=== PATIENT | female | born 1960 | race Caucasian/White ===

== ENCOUNTER 2021-12-19 13:09 | Outpatient (CLI) | payer SELFPAY ==
--- NOTE | 2021-12-19 13:24 | CT_ITS ---
STUDY: CT MAXILLOFACIAL SINUSES REASON FOR EXAM: Female, 61 years old. Left facial pain. RADIATION DOSAGE (If Supplied By Facility): CTDIvol = ( 28.14 ) mGy, DLP = ( 647.70 ) mGycm TECHNIQUE: The patient was scanned in a multi detector CT scanner. High resolution axial imaging was performed without the administration of intravenous contrast material. Sagittal and coronal images were reconstructed. Individualized dose optimization techniques were used for this CT. COMPARISON: None. FINDINGS: FRONTAL SINUSES: Normal aeration, without mucosal inflammatory disease. ETHMOIDAL SINUSES: Normal aeration, without mucosal inflammatory disease. MAXILLARY SINUSES: Normal aeration, without mucosal inflammatory disease. SPHENOIDAL SINUSES: Normal aeration, without mucosal inflammatory disease. There is patency of the bilateral maxillary infundibuli with normal uncinate processes, ethmoid bullae, and hiatus semilunaris. Normal bilateral middle turbinates. Normal bilateral inferior turbinates. Normal midline nasal septum. There is patency of the bilateral nasal airways. The visualized osseous structures are normal. The visualized bilateral orbital contents are normal. CT/Sinus/Facial Bone IMPRESSION: Normal CT examination of the maxillofacial sinuses. Electronically Signed: Amilcar Kwan MD at 14:52 EST ,
== END 2021-12-19 23:59 | disposition home or self-care (01) ==
PROVIDERS: PCP Family Medicine; Referring Provider Otolaryngology; Visit Provider Otolaryngology
DX: R51.9 Headache, unspecified (principal)
CPT/HCPCS: 70486

== ENCOUNTER → 2022-02-07 | Outpatient (CLI) | payer SELFPAY ==
--- NOTE | 2022-02-07 08:10 | MRI_ITS ---
STUDY: MRI BRAIN WITHOUT CONTRAST (ATTENTION INTERNAL AUDITORY CANALS - I.A.C.''s) REASON FOR EXAM: Female, 61 years old. Trigeminal neuralgia, LEFT FACIAL PAIN, JAW PAIN AND CHEONDOISM PAIN TECHNIQUE: Standardized multiplanar fat and water weighted pulse sequences were obtained. COMPARISON: CT of the facial bones dated December 19, 2021 FINDINGS: Normal bilateral temporal bones. Normal bilateral internal auditory canals. There is no demonstrated intracanalicular or cisternal vestibular schwannoma (acoustic neuroma). There is no enhancement of the bilateral VIIth or VIIIth cranial nerves. Normal bilateral cochlea, vestibules and semicircular canals. The unenhanced trigeminal as well as the 4th and 6th cranial nerves are well visualized and appear to be normal in thickness and signal. No abnormal enlargement or cyst or focal mass is seen within the visualized portions of the nerve roots. There is mild cerebral atrophy with widening of the extra-axial spaces and ventricular dilatation. Normal white matter tracts of the supratentorial brain. There is no evidence for recent intracranial ischemia or other cause of cytotoxic edema on diffusion weighted imaging (DWI). Normal T2* images of the brain without demonstrated susceptibility artifact. There is no demonstrated hemosiderin stain. Normal bilateral basal ganglia. Normal thalami. Normal flow voids within the major intracranial circulation suggesting patency by spin echo criteria. Normal venous enhancement. There is no enhancing intra-axial or extra-axial abnormality. There is no extra-axial fluid accumulation. Normal sella turcica, pituitary gland, infundibular stalk, optic chiasm and hypothalamus. Normal tectal plate and pineal gland. Normal midbrain, lalito and medulla. Normal cerebellum. Normal basal cisterns. No demonstrated orbital abnormality, within the constraints of a routine brain study. Normal visualized paranasal sinuses. Normal calvarium and skull base. Normal visualized soft tissue structures. Normal visualized upper cervical spine. MRI/Brain without Contrast IMPRESSION: 1. Normal unenhanced and enhanced MRI of the bilateral internal auditory canals (I.A.C''s). 2. The unenhanced trigeminal as well as the 4th and 6th cranial nerves are well visualized and appear to be normal in thickness and signal. No abnormal enlargement or cyst or focal mass is seen within the visualized portions of the nerve roots. Electronically Signed: Bretnon Mason MD at 11:05 EDT ,
== END | disposition home or self-care (01) ==
LOC: MRI 08:06
PROVIDERS: PCP Family Medicine; Referring Provider Psychiatry & Neurology Neurology; Visit Provider Psychiatry & Neurology Neurology
DX: G50.0 Trigeminal neuralgia (principal)
CPT/HCPCS: 70551

== ENCOUNTER → 2022-06-01 | Outpatient (CLI) | payer SELFPAY ==
[2022-06-01 10:18] LABS: Hematocrit 37.6 % (37-47); Hemoglobin 12.6 g/dL (12.0-15.0); Mean Corp Hgb Conc 33.5 g/dL (32-36); Mean Corpuscular Hgb 33.5 pg (27.0-32.0); Mean Platelet Vol. 11.5 fl (6.2-12.0); Platelet Count 180 K/mm3 (150-450); RBC Distribution Width CV 11.8 % (11.6-14.6); RBC Distribution Width SD 42.5 fl (35.1-43.9); Red Blood Count 3.76 M/mm3 (4.2-5.4); White Blood Count 2.6 K/mm3 (4.4-11.0)
[2022-06-01 10:51] LABS: ALB/GLOB Ratio 1.3 RATIO (0.9-2.4); AST(SGOT) 14 U/L (15-37); Alanine Aminotransfer ALT/SGPT 16 U/L (13-56); Albumin, Serum 3.9 g/dL (3.2-5.0); Alkaline Phosphatase 68 U/L (45-117); Anion Gap 4 (5-15); BUN 10 mg/dL (7-18); BUN/Creat Ratio 16.9 RATIO (10-20); Calcium,Total 9.2 mg/dL (8.5-10.1); Chloride 105 mmol/L (98-107); Creatinine, Serum 0.59 mg/dL (0.55-1.02); EST Glomerular Filtration Rate 109 mL/min (>60); Est Glom Filt Rate - Afr Amer 132 mL/min (>60); Glucose 96 mg/dL (74-106); Protein, Total 6.9 g/dL (6.4-8.2); Sodium Level 138 mmol/L (136-145)
[2022-06-06 07:59] LABS: Trileptal-Oxcarbazepine 8 ug/mL (10-35)
== END | disposition home or self-care (01) ==
PROVIDERS: PCP Family Medicine; Referring Provider Psychiatry & Neurology Neurology; Visit Provider Psychiatry & Neurology Neurology
DX: G50.1 Atypical facial pain (principal)
CPT/HCPCS: 36415; 80053; 82542; 85027

== ENCOUNTER → 2022-07-20 | Outpatient (CLI) | payer SELFPAY ==
[2022-07-20 15:24] LABS: Absolute Lymphocyte Count 1.24 X10^3/uL (0.83-4.51); Absolute Neutrophil Count 1.7 X10^3/uL (2.0-7.7); Basophil# 0.03 X10^3/uL; Basophil% 0.9 % (0-1); Eosinophil# 0.11 X10^3/uL; Eosinophils% 3.3 % (0-5); Hematocrit 39.1 % (37-47); Hemoglobin 12.9 g/dL (12.0-15.0); Lymphocyte # 1.24 X10^3/ul (0.83-4.51); Lymphocyte % 37.5 % (19-41); Mean Corpuscular Hgb 33.3 pg (27.0-32.0); Mean Platelet Vol. 11.9 fl (6.2-12.0); NRBC Flagged by Analyzer 0 % (0-5); Neutrophil # 1.73 X10^3/uL (2.7-7.7); Neutrophil % 52.3 % (47-70); Platelet Count 199 K/mm3 (150-450); RBC Distribution Width CV 11.8 % (11.6-14.6); RBC Distribution Width SD 43.5 fl (35.1-43.9); Red Blood Count 3.87 M/mm3 (4.2-5.4); White Blood Count 3.3 K/mm3 (4.4-11.0)
== END | disposition home or self-care (01) ==
LOC: MTLAB 11:54
PROVIDERS: PCP Family Medicine; Referring Provider Psychiatry & Neurology Neurology; Visit Provider Psychiatry & Neurology Neurology
DX: D72.819 Decreased white blood cell count, unspecified (principal)
CPT/HCPCS: 36415; 85025

== ENCOUNTER → 2022-11-27 | Outpatient (CLI) | payer SELFPAY ==
[2022-11-27 09:58] LABS: Absolute Lymphocyte Count 0.89 X10^3/uL (0.83-4.51); Absolute Neutrophil Count 1.2 X10^3/uL (2.0-7.7); Basophil# 0.03 X10^3/uL; Basophil% 1.2 % (0-1); Eosinophil# 0.14 X10^3/uL; Eosinophils% 5.8 % (0-5); Hematocrit 40.1 % (37-47); Hemoglobin 13.2 g/dL (12.0-15.0); Lymphocyte # 0.89 X10^3/ul (0.83-4.51); Lymphocyte % 36.8 % (19-41); Mean Corp Hgb Conc 32.9 g/dL (32-36); Mean Corpuscular Hgb 33.8 pg (27.0-32.0); Mean Corpuscular Volume 102.6 fL (81-99); Mean Platelet Vol. 11.4 fl (6.2-12.0); Monocyte# 0.13 X10^3/uL; Monocyte% 5.4 % (0-10); NRBC Flagged by Analyzer 0 % (0-5); Neutrophil # 1.23 X10^3/uL (2.7-7.7); Neutrophil % 50.8 % (47-70); Platelet Count 180 K/mm3 (150-450); RBC Distribution Width CV 11.8 % (11.6-14.6); RBC Distribution Width SD 44.2 fl (35.1-43.9); Red Blood Count 3.91 M/mm3 (4.2-5.4); White Blood Count 2.4 K/mm3 (4.4-11.0)
[2022-11-27 10:07] LABS: Phenytoin (Dilantin) Level 24.2 mL (10.0-20.0)
== END | disposition home or self-care (01) ==
PROVIDERS: PCP Family Medicine; Referring Provider Psychiatry & Neurology Neurology; Visit Provider Psychiatry & Neurology Neurology
DX: G50.1 Atypical facial pain (principal)
CPT/HCPCS: 36415; 80185; 85025

== ENCOUNTER → 2023-02-12 | Outpatient (CLI) | payer SELFPAY ==
[2023-02-12 10:28] LABS: Absolute Lymphocyte Count 0.91 X10^3/uL (0.83-4.51); Absolute Neutrophil Count 1.1 X10^3/uL (2.0-7.7); Basophil# 0.04 X10^3/uL; Basophil% 1.7 % (0-1); Eosinophil# 0.16 X10^3/uL; Eosinophils% 6.7 % (0-5); Hematocrit 39.6 % (37-47); Hemoglobin 13.1 g/dL (12.0-15.0); Lymphocyte # 0.91 X10^3/ul (0.83-4.51); Lymphocyte % 38.2 % (19-41); Mean Corp Hgb Conc 33.1 g/dL (32-36); Mean Corpuscular Hgb 34.2 pg (27.0-32.0); Mean Corpuscular Volume 103.4 fL (81-99); Mean Platelet Vol. 11.3 fl (6.2-12.0); Monocyte# 0.17 X10^3/uL; Monocyte% 7.1 % (0-10); NRBC Flagged by Analyzer 0 % (0-5); Neutrophil # 1.09 X10^3/uL (2.7-7.7); Neutrophil % 45.9 % (47-70); Platelet Count 175 K/mm3 (150-450); RBC Distribution Width CV 11.9 % (11.6-14.6); RBC Distribution Width SD 45.1 fl (35.1-43.9); Red Blood Count 3.83 M/mm3 (4.2-5.4); White Blood Count 2.4 K/mm3 (4.4-11.0)
[2023-02-12 10:54] LABS: ALB/GLOB Ratio 1.3 RATIO (0.9-2.4); AST(SGOT) 14 U/L (15-37); Alanine Aminotransfer ALT/SGPT 31 U/L (13-56); Albumin, Serum 3.7 g/dL (3.2-5.0); Alkaline Phosphatase 102 U/L (45-117); Anion Gap 4 (5-15); BUN 12 mg/dL (7-18); BUN/Creat Ratio 20.4 RATIO (10-20); Chloride 109 mmol/L (98-107); Creatinine, Serum 0.59 mg/dL (0.55-1.02); EST Glomerular Filtration Rate 109 mL/min (>60); Est Glom Filt Rate - Afr Amer 132 mL/min (>60); Globulin 2.9 g/dL (2.2-4.2); Glucose 91 mg/dL (74-106); Phenytoin (Dilantin) Level 16.8 mL (10.0-20.0); Potassium 4.5 mmol/L (3.5-5.1); Protein, Total 6.6 g/dL (6.4-8.2); Sodium Level 141 mmol/L (136-145)
== END | disposition home or self-care (01) ==
PROVIDERS: PCP Family Medicine; Referring Provider Psychiatry & Neurology Neurology; Visit Provider Psychiatry & Neurology Neurology
DX: G50.1 Atypical facial pain (principal); D72.819 Decreased white blood cell count, unspecified
CPT/HCPCS: 36415; 80053; 80185; 85025

== ENCOUNTER → 2025-03-02 | Outpatient (CLI) | payer MEDICARE, BC, SELFPAY ==
[2025-03-02 08:43] LABS: Absolute Lymphocyte Count 0.94 X10^3/uL (0.83-4.51); Absolute Neutrophil Count 1.5 X10^3/uL (2.0-7.7); Basophil# 0.03 X10^3/uL; Basophil% 1.1 % (0-1); Eosinophil# 0.15 X10^3/uL; Eosinophils% 5.4 % (0-5); Hematocrit 38.5 % (37-47); Hemoglobin 12.9 g/dL (12.0-15.0); Lymphocyte # 0.94 X10^3/ul (0.83-4.51); Lymphocyte % 34.1 % (19-41); Mean Corp Hgb Conc 33.5 g/dL (32-36); Mean Corpuscular Hgb 33.4 pg (27.0-32.0); Mean Corpuscular Volume 99.7 fL (81-99); Mean Platelet Vol. 10.9 fl (6.2-12.0); Monocyte# 0.18 X10^3/uL; Monocyte% 6.5 % (0-10); NRBC Flagged by Analyzer 0 % (0-5); Neutrophil # 1.45 X10^3/uL (2.7-7.7); Neutrophil % 52.5 % (47-70); Platelet Count 203 K/mm3 (150-450); RBC Distribution Width SD 43.6 fl (35.1-43.9); Red Blood Count 3.86 M/mm3 (4.2-5.4); White Blood Count 2.8 K/mm3 (4.4-11.0)
[2025-03-02 09:29] LABS: AST(SGOT) 19 U/L (<=31); Alanine Aminotransfer ALT/SGPT 14 U/L (<=34); Albumin, Serum 4.4 g/dL (3.4-4.8); Alkaline Phosphatase 87 U/L (35-104); Anion Gap 8 (5-15); BUN 11 mg/dL (4-19); BUN/Creat Ratio 17.1 RATIO (10-20); Calcium,Total 9.3 mg/dL (7.6-11.0); Carbamazepine (Tegretol) 5.2 ug/mL (4.0-12.0); Carbon Dioxide 27.1 mmol/L (21.0-32.0); Chloride 106 mmol/L (98-108); Creatinine, Serum 0.61 mg/dL (0.70-1.20); EST Glomerular Filtration Rate 98 (>60); Globulin 2.3 g/dL (2.2-4.2); Glucose 104 mg/dL (70-99); Potassium 4.2 mmol/L (3.3-5.1); Protein, Total 6.7 g/dL (5.9-8.4); Sodium Level 141 mmol/L (133-145); Total Bilirubin 0.25 mg/dL (0.00-1.30)
== END | disposition home or self-care (01) ==
PROVIDERS: PCP Family Medicine; Referring Provider Psychiatry & Neurology Neurology; Visit Provider Psychiatry & Neurology Neurology
DX: G50.1 Atypical facial pain (principal)
CPT/HCPCS: 36415; 80053; 80156; 85025

== ENCOUNTER → 2025-08-12 | Outpatient (CLI) | payer MEDICARE, BC, SELFPAY ==
--- OUTSIDE RECORDS SUMMARY | 2025-08-12 09:15 | XMS RPT_ITS | CCD ---
Author Organization [facility] CliniSyal Care Team Providers Care Radiator Mechanic Name Role Phone Unavailable Primary Care Provider Unavailabl e Pravin Siddiqi Unavailable Dr. Pravin Siddiqi Primary Care Provider Dr. Pravin Siddiqi Referring Provider Dr. Tony Branch Attending Provider Dr. Pravin Siddiqi Primary Care Provider Dr. Pravin Siddiqi Referring Provider Dr. Tony Branch Attending Provider Neeru ARGUETA, Dr. Pravin Garland Primary Care Provider Neeru ARGUETA, Dr. Pravin Garland Referring Provider Jose Carlos ARGUETA, Dr. Jimenez Attending Provider Jose Carlos ARGUETA, Dr. Jimenez Referring Provider Neeru ARGUETA, Dr. Pravin Garland Primary Care Provider Neeru ARGUETA, Dr. Pravin Garland Referring Provider Jose Carlos ARGUETA, Dr. Jimenez Attending Provider Tony Branch Attending Unavailable Tony Branch Referring Unavailable Pravin Siddiqi Primary Care Unavailable Tony Branch Attending Unavailable Pravin Siddiqi Primary Care Unavailable Pravin Siddiqi Referring Unavailable Tony Branch Attending Unavailable Pravin Siddiqi Primary Care Unavailable Pravin Siddiqi Referring Unavailable Pravin Siddiqi Primary Care Unavailable Tony Branch Attending Unavailable Pravin Siddiqi Referring Unavailable Pravin Siddiqi Primary Care Unavailable Tony Branch Attending Unavailable Pravin Siddiqi Referring Unavailable Allergies Allergy Classification Reported Allergen(s) Allergy Type Date of Onset Reaction(s) Facility (5 sources) Clindamycin; Translations: [clindamycin] Drug Allergy 01-24-2022 Other [facility] Comment on above: Effect liver and kid neys (1 source) Clindamycin Drug Allergy 08-10-2025 [facility] Repository Medications Current Medications Medication Drug Class(es) Dates Sig (Normalized) Sig (Original) carBAMazepine 200 mg oral tablet (6 sources) Mood Stabilizer Start: 02-09-2025 take 1 tablet by mouth twice daily Carbamazepine 200 mg tablet Active 200 mg PO TWICE A DAY 60 February 09, 2025 8:36am Start: 12-22-2024 End: 02-09-2025 take 1 tablet by mouth once daily, then take 1 tablet by mouth twice daily Carbamazepine 200 mg tablet Discontinued 0 .ROUTE .COMPLEX 60 December 22, 2024 12:00am February 09, 2025 8:38am Take 1 tablet orally daily for 3 days then 1 tablet twice daily thereafter. Start: 07-14-2024 End: 12-22-2024 take 1 tablet by mouth once daily Carbamazepine 100 mg tablet,chewable Discontinued 100 mg PO daily 30 July 14, 2024 12:00am December 22, 2024 10:57am predniSONE 10 mg oral tablet (1 source) Start: 05-26-2025 Prednisone 10 mg tablet Active 0 .Route .COMPLEX 21 May 26, 2025 12:00am 6 tabs orally daily x 1 day then 5 tabs x 1 day then 4 tabs x 1 day then 3 tabs x 1 day then 2 tabs x 1 day then 1 tab x 1 day pregabalin 50 mg oral capsule (1 source) Start: 05-26-2025 take 1 tablet by mouth once daily, then take 1 tablet by mouth twice daily Pregabalin 50 mg capsule Active 0 .ROUTE .COMPLEX 60 May 26, 2025 12:00am Take 1 tablet orally daily for 3 days then 1 tablet twice daily thereafter. Completed/Discontinued Medications Medication Drug Class(es) Dates Sig (Normalized) Sig (Original) baclofen 10 mg oral tablet (2 sources) gamma-Aminobutyric Acid-ergic Agonist Start: 06-11-2023 End: 07-02-2023 take 1 tablet by mouth three times daily Baclofen 10 mg tablet Discontinued 10 mg PO THREE TIMES A DAY 90 June 11, 2023 12:00am July 02, 2023 5:35pm flurbiprofen 100 mg oral tablet (13 sources) Nonsteroidal Anti-inflammatory Drug Start: 10-03-2022 End: 02-09-2025 take 1 tablet by mouth three times daily as needed for pain Flurbiprofen 100 mg tablet Discontinued 100 mg PO THREE TIMES A DAY as needed for pain 90 December 22, 2024 10:59am February 09, 2025 8:38am gabapentin 300 mg oral capsule (12 sources) Anti-epileptic Agent Start: 07-14-2024 End: 07-28-2024 take 1 capsule by mouth three times daily Gabapentin 300 mg capsule Discontinued 300 mg PO THREE TIMES A DAY 90 July 14, 2024 12:00am July 28, 2024 1:33pm Start: 06-23-2024 End: 07-14-2024 take 1 capsule by mouth three times daily Gabapentin 400 mg capsule Discontinued 400 mg PO THREE TIMES A DAY 90 June 23, 2024 12:00am July 14, 2024 12:53pm Start: 04-10-2024 End: 06-23-2024 take 1 tablet by mouth three times daily Gabapentin 600 mg tablet Discontinued 600 mg PO THREE TIMES A DAY 90 April 10, 2024 12:00am June 23, 2024 10:12am Start: 02-18-2024 End: 04-10-2024 take 1 capsule by mouth three times daily Gabapentin 300 mg capsule Discontinued 300 mg PO THREE TIMES A DAY 90 February 18, 2024 8:19am April 10, 2024 4:44pm Start: 10-11-2023 End: 02-18-2024 take 1 capsule by mouth once daily, then take 1 capsule by mouth twice daily, then take 1 capsule by mouth three times daily Gabapentin 100 mg capsule Discontinued 100 mg .ROUTE .COMPLEX 90 October 11, 2023 1:00am February 18, 2024 8:18am Take 1 capsule orally daily for 1 week then 1 capsule twice daily for 1 week then 1 capsule three times daily thereafter No Reported Medications (1 source) No Reported Medications Quantity: 0 Refills: 0 Ordered: 30-Nov-2021 DO Active OXcarbazepine 300 mg oral tablet (7 sources) Anti-epileptic Agent Start: 05-22-2022 End: 07-05-2022 take 1 tablet by mouth twice daily Oxcarbazepine 300 mg tablet Discontinued 300 mg PO TWICE A DAY 60 4 May 22, 2022 12:00am July 05, 2022 12:08pm Start: 01-24-2022 End: 05-22-2022 take 1 tablet by mouth twice daily Oxcarbazepine 150 mg tablet Discontinued 150 mg PO TWICE A DAY 60 January 24, 2022 12:00am May 22, 2022 3:35pm phenytoin sodium 100 mg extended release oral capsule (18 sources) Anti-epileptic Agent Start: 02-05-2023 End: 06-23-2024 take 1 capsule by mouth twice daily Phenytoin Sodium Extended 100 mg capsule Discontinued 100 mg PO TWICE A DAY 60 February 18, 2024 8:18am June 23, 2024 10:12am Start: 02-05-2023 End: 10-11-2023 take 1 tablet by mouth once Phenytoin 50 mg tablet,heather wable Discontinued 50 mg PO .COMPLEX 30 5 June 11, 2023 8:41am October 11, 2023 9:40am 50 mg orally every mid-day Start: 10-03-2022 End: 02-05-2023 take 1 capsule by mouth three times daily Phenytoin Sodium Extended 100 mg capsule Discontinued 100 mg PO THREE TIMES A DAY 90 5 October 03, 2022 12:19pm February 05, 2023 3:20pm Start: 07-05-2022 End: 10-03-2022 take 1 capsule by mouth once daily, then take 1 capsule by mouth twice daily Phenytoin Sodium Extended 100 mg capsule Discontinued 100 mg PO .COMPLEX 60 4 July 05, 2022 12:00am October 03, 2022 12:21pm 100 mg orally daily for one week then 100mg twice per day thereafter Problems Problem Classification Problem Date Documented Da te Episodic/Chronic Diabetes mellitus without complication (1 source) Hyperglycemia, unspecified; Translations: [Hyperglycemia, unspecified] Onset: 08-10-2025 Episodic Diseases of mouth; excluding dental (1 source) Disorder of salivary gland; Translations: [Other specified diseases of the salivary glands] Episodic Diseases of white blood cells (3 sources) Leukopenia; Translations: [Decreased white blood cell count, unspecified] 07-05-2022 Chronic Comment on above: Leukopenia with neut ropenia.WBC 4.1 with normal neutrophils on 07/28/2024.Asymptomatic. Discussed asymptomatic leukopenia and reassured Pt. Since leukocytes are improving, can continue observation Other nervous system disorders (8 sources) Atypical facial pain; Translations: [Atypical facial pain] 01-24-2022 Episodic Other nervous system disorders (3 sources) Atypical facial pain; Translations: [Atypical face pain] Onset: 08-10-2025 Episodic Other screening for suspected conditions (not mental disorders or infectious disease) (2 sources) Eosinophil count raised; Translations: [Other abnormal findings in specimens from other organs, systems and tissues] 07-23-2023 Episodic Comment on above: May be due to Phenyt oin. Results Test Name Value Interpretation Reference Range Facility Neurology Visit Reporton Neurology Visit Report [facility] [address] [place] [address], [address] [place] [address] OFFICE VISIT Date of Service: 08/10/25 MR#: [id number] Acct: [id number] Name: SHAN KLINE PAIGE Rep #: [id number] : 1960 Provider: Dr. Tony chew MD Age/Sex: 64/F [place] [facility] [place]: Signed HPI HPI Chief Complaint: Facial Pain Details: Interim History: Shan returns for follow-up visit. In 2019, she began having continuous left-sided facial pain that primarily affected the left maxillary region and also, at times, the left mandibular region and infrequently the left temporal region. She described the pain as throbbing in character and the pain fluctuates in severity. Touching the left side of her face, facial exposure to cold air, yawning/opening her mouth and chewing food can exacerbate her pain. Clxo-xsx-wtzilin ibuprofen up to a total of 4 tablets daily as needed for her pain was of benefit but was sedating. Flurbiprofen is of some benefit for her facial pain. Phenytoin, initiated in 2021, was initially of moderate benefit however subsequently lost efficacy and was discontinued in 2023. Gabapentin was initiated. Her dose of gabapentin was increased to 600 mg 3 times daily in March 2024 and she reported that since the latter part of April 2024 her facial pain has nearly subsided completely; the medication was sedating and was reduced to 400mg TID; this was not of benefit and gabapentin was discontinued. Baclofen, for her facial pain, was sedating. She is currently taking carbamazepine 200 mg twice daily. She has experienced slight lightheadedness as a side effect of the medication. Individual occurrences of her facial pain have lasted up to 1 to 2 weeks then she may have a period of 1 week of pain reduction. She is unaware of any clear precipitating event for the onset of her pain. She did not have any preceding facial infection or upper respiratory tract infection. She had dental work in years past including a left mandibular root canal performed. She has seen a dentist and another dental specialist regarding her facial pain and no dental pathology to account for her left-sided pain was identified. She did not have any history of Bermudez's palsy or facial trauma. She saw an ENT specialist, Dr. Charles, and no structural pathology to account for her symptoms was identified. A facial and sinus CT scan was unremarkable. She denied having numbness, speech difficulty, swallowing difficulty, facial weakness or facial numbness. She did not have an associated rash. Oxcarbazepine, initiated in 2021, was not of sustained benefit and may possibly have caused a reduction of her white blood count and was discontinued. Her white blood count however has remained low. She saw a maid supervisor regarding her low white blood count and the patient stated that no definite cause was identified for her low white blood count, though the possibility that her low white blood count (which is asymptomatic) may have been a side effect of phenytoin was suspected; however her low white blood count has persisted despite discontinuation of phenytoin. Pregabalin 50 mg twice daily has not been of benefit for her neuropathic pain and the medication is sedating. Physical Exam: Neuro: The patient is awake and alert and responds appropriately; speech is fluent; slight delay in left eye blinking compared to the right is noted On prior exam: the left palpebral fissure is larger than the right Supplemental Info CT facial/sinus (12/19/2021): FINDINGS: FRONTAL SINUSES: Normal aeration, without mucosal inflammatory disease. ETHMOIDAL SINUSES: Normal aeration, without mucosal inflammatory disease. MAXILLARY SINUSES: Normal aeration, without mucosal inflammatory disease. SPHENOIDAL SINUSES: Normal aeration, without mucosal inflammatory disease. There is patency of the bilateral maxillary infundibuli with normal uncinate processes, ethmoid bullae, and hiatus semilunaris. Normal bilateral middle turbinates. Normal bilateral inferior turbinates. Normal midline nasal septum. There is patency of the bilateral nasal airways. The visualized osseous structures are normal. The visualized bilateral orbital contents are normal. IMPRESSION: Normal CT examination of the maxillofacial sinuses. These images were reviewed on 01/24/2022. Head MRI without contrast with attention to the internal auditory canals (02/07/2022): 1. Normal unenhanced and enhanced MRI of the bilateral internal auditory canals (I.A.C''s). 2. The unenhanced trigeminal as well as the 4th and 6th cranial nerves are well visualized and appear to be normal in thickness and signal. No abnormal enlargement or cyst or focal mass is seen within the visualized portions of the nerve roots. Chronic and benign sclerosis in the left mandibular molar region either related to asymmetric demineralization or sequela of chronic inflammation.??? Refe (more content not included)... Normal [facility] Neurology Visit Reporton Neurology Visit Report [facility] [address], [address] [place] [address] OFFICE VISIT Date of Service: 05/26/25 MR#: [id number] Acct: [id number] Name: SHAN KLINE PAIGE Rep #: [id number] : 1960 Provider: Dr. Tony chew MD Age/Sex: 64/F [place] [facility] [place] Status: Signed [facility] Chief Complaint: Facial Pain Details: Interim History: Shan returns for follow-up visit. In 2019, she began having continuous left-sided facial pain that primarily affected the left maxillary region and also, at times, the left mandibular region and infrequently the left temporal region. She described the pain as throbbing in character and the pain fluctuates in severity. Touching the left side of her face, facial exposure to cold air, yawning/opening her mouth and chewing food can exacerbate her pain. Ztqt-ufe-xojtjyi ibuprofen up to a total of 4 tablets daily as needed for her pain was of benefit but was sedating. Flurbiprofen has been of benefit though this medication has not been of benefit for her current exacerbation that began about 4 days ago. Phenytoin, initiated in 2021, was initially of moderate benefit however later, phenytoin lost efficacy and was discontinued in 2023. Gabapentin was initiated. Her dose of gabapentin was increased to 600 mg 3 times daily in March 2024 and she reported that since the latter part of April 2024 her facial pain has nearly subsided completely; the medication was sedating and was reduced to 400mg TID; this was not of benefit and gabapentin was discontinued. Baclofen, for her facial pain, was sedating. She is currently taking carbamazepine 200 mg twice daily. She is experiencing slight lightheadedness as a side effect of the medication. Individual occurrences of her facial pain have lasted up to 1 to 2 weeks then she may have a period of 1 week of pain reduction. She is unaware of any clear precipitating event for the onset of her pain. She did not have any preceding facial infection or upper respiratory tract infection. She had dental work in years past including a left mandibular root canal performed. She has seen a dentist and another dental specialist regarding her facial pain and no dental pathology to account for her left-sided pain was identified. She did not have any history of Bermudez's palsy or facial trauma. She saw an ENT specialist, Dr. Charles, and no structural pathology to account for her symptoms was identified. A facial and sinus CT scan was unremarkable. She denied having numbness, speech difficulty, swallowing difficulty, facial weakness or facial numbness. She did not have an associated rash. Oxcarbazepine, initiated in 2021, was not of sustained benefit and may possibly have caused a reduction of her white blood count and was discontinued. Her white blood count however has remained low. She saw a maid supervisor regarding her low white blood count and the patient stated that no definite cause was identified for her low white blood count, though the possibility that her low white blood count (which is asymptomatic) may have been a side effect of phenytoin was suspected; however her low white blood count has persisted despite discontinuation of phenytoin. Physical Exam: Neuro: The patient is awake and alert and responds appropriately; speech is fluent; the left palpebral fissure is larger than the right Heart: Regular rate and rhythm Supplemental Info CT facial/sinus (12/19/2021): FINDINGS: FRONTAL SINUSES: Normal aeration, without mucosal inflammatory disease. ETHMOIDAL SINUSES: Normal aeration, without mucosal inflammatory disease. MAXILLARY SINUSES: Normal aeration, without mucosal inflammatory disease. SPHENOIDAL SINUSES: Normal aeration, without mucosal inflammatory disease. There is patency of the bilateral maxillary infundibuli with normal uncinate processes, ethmoid bullae, and hiatus semilunaris. Normal bilateral middle turbinates. Normal bilateral inferior turbinates. Normal midline nasal septum. There is patency of the bilateral nasal airways. The visualized osseous structures are normal. The visualized bilateral orbital contents are normal. IMPRESSION: Normal CT examination of the maxillofacial sinuses. These images were reviewed on 01/24/2022. Head MRI without contrast with attention to the internal auditory canals (02/07/2022): 1. Normal unenhanced and enhanced MRI of the bilateral internal auditory canals (I.A.C''s). 2. The unenhanced trigeminal as well as the 4th and 6th cranial nerves are well visualized and appear to be normal in thickness and signal. No abnormal enlargement or cyst or focal mass is seen within the visualized portions of the nerve roots. Chronic and benign sclerosis in the left mandibular molar region either related to asymmetric demineralization or sequela of chronic inflammation.??? Refer to prior CT of the facial bone study dated December 19, 2021 which is a be (more content not included)... Normal [facility] Absolute lymphocyte countOrd ered By: Tony Branch on 03-02-2025 Lymphocytes Auto (Unsp spec) [#/Vol] 0.94 10*3/uL 0.83-4.51 [facility] Absolute neutrophil countOrd ered By: Tony Branch on 03-02-2025 Neutrophils (Bld) [#/Vol] 1.5 10*3/uL Low 2.0-7.7 [facility] Anion gap in Serum or Plasma Ordered By: Tony Branch on 03-02-2025 Anion gap [Moles/Vol] 8 mmol/L 5-15 [facility] Automated lymphocyte count a s percentage of total leukocytesOrdered By: Tony Branch on 03-02-2025 Lymphocytes/100 WBC Auto (Unsp spec) 34.1 % 19-41 [facility] BUN/creatinine ratioOrdered By: Tony Branch on 03-02-2025 Urea nitrogen/Creatinine [Mass ratio] 17.1 mg/mg 10-20 [facility] Basophil percentageOrdered B y: Tony Branch on 03-02-2025 Basophils/100 WBC (Bld) 1.1 % High 0-[address] [facility] Bilirubin, totalOrdered By: Tony Branch on 03-02-2025 Bilirubin [Mass/Vol] 0.25 mg/dL 0.00-1.30 [facility] CBC W/Diff, Automatedon 02-12 Absolute Lymph 0.94 X10 3/uL Normal 0.83-4.51 [facility] Comment on above: Performed By: #### L 501.7900, L100.0100, [id number] #### [facility] [address] [place], [address] Absolute Neut 1.5 X10 3/uL Low 2.0-7.7 [facility] Comment on above: Performed By: #### L 501.7900, L100.0100, [id number] #### [facility] [address] [place], [address] Basophils/100 WBC (Bld) 1.1 % High 0-[address] [facility] Comment on above: Performed By: #### L 501.7900, L100.0100, [id number] #### [facility] [address] [place], [address] Eosinophils/100 WBC (Bld) 5.4 % High 0-5 [facility] Comment on above: Performed By: #### L 501.7900, L100.0100, [id number] #### [facility] [address] [place], [address] Erythrocyte distribution width (RBC) [Ratio] 12.0 % Normal 11.6-14.6 [facility] Comment on above: Performed By: #### L 501.7900, L100.0100, [id number] #### [facility] [address] [place], [address] Hematocrit (Bld) [Volume fraction] 38.5 % Normal 37-47 [facility] Comment on above: Performed By: #### L 501.7900, L100.0100, [id number] #### [facility] [address] [place], [address] Hemoglobin (Bld) [Mass/Vol] 12.9 g/dL Normal 12.0-15.0 [facility] Comment on above: Performed By: #### L 501.7900, L100.0100, [id number] #### [facility] [address] [place], [address] IG% 0.400 Normal 0.0-0.9 [facility] Comment on above: Result Comment: IG% - Immature Granulocytes (promyelocytes, myelocytes and metamyelocytes) > 1% indicates that a LEFT SHIFT is Present. Performed By: #### L 501.7900, L100.0100, [id number] #### [facility] [address] [place], [address] Lymphocytes/100 WBC (Bld) 34.1 % Normal 19-41 [facility] Comment on above: Performed By: #### L 501.7900, L100.0100, [id number] #### [facility] [address] [place], [address] MCH (RBC) [Entitic mass] 33.4 pg High 27.0-32.0 [facility] Comment on above: Performed By: #### L 501.7900, L100.0100, [id number] #### [facility] [address] [place], [address] MCHC (RBC) [Mass/Vol] 33.5 g/dL Normal 32-36 [facility] Comment on above: Performed By: #### L 501.7900, L100.0100, [id number] #### [facility] [address] [place], [address] MCV (RBC) [Entitic vol] 99.7 fL High 81-[address] [facility] Comment on above: Performed By: #### L 501.7900, L100.0100, [id number] #### [facility] [address] [place], [address] Monocytes/100 WBC (Bld) 6.5 % Normal 0-10 [facility] Comment on above: Performed By: #### L 501.7900, L100.0100, [id number] #### [facility] [address] [place], [address] Neutrophils/100 WBC (Bld) 52.5 % Normal 47-70 [facility] Comment on above: Performed By: #### L 501.7900, L100.0100, [id number] #### [facility] [address] [place], [address] Nucleated RBC (Bld) [#/Vol] 0 10*3/uL Normal 0-5 [facility] Comment on above: Performed By: #### L 501.7900, L100.0100, [id number] #### [facility] [address] [place], [address] Platelet mean volume (Bld) [Entitic vol] 10.9 fL Normal 6.2-12.0 [facility] Comment on above: Performed By: #### L 501.7900, L100.0100, [id number] #### [facility] [address] [place], [address] Platelets (Bld) [#/Vol] 203 10*3/uL Normal 150-450 [facility] Comment on above: Performed By: #### L 501.7900, L100.0100, [id number] #### [facility] [address] [place], [address] RBC (Bld) [#/Vol] 3.86 10*6/uL Low 4.2-5.4 [facility] Comment on above: Performed By: #### L 501.7900, L100.0100, [id number] #### [facility] [address] [place], [address] RDW SD 43.6 fl Normal 35.1-43.9 [facility] Comment on above: Performed By: #### L 501.7900, L100.0100, [id number] #### [facility] [address] [place], [address] WBC (Bld) [#/Vol] 2.8 10*3/uL Low 4.4-11.0 [facility] Comment on above: Performed By: #### L 501.7900, L100.0100, [id number] #### [facility] [address] [place], [address] Carbamazepine (Tegretol)on 0 03-02-2025 CARBAMAZEPINE 5.2 ug/mL Normal 4.0-12.0 [facility] Comment on above: Performed By: #### L 501.7900, L100.0100, [id number] #### [facility] [address] [place], [address] Carbon dioxide, total [Moles /volume] in Central venous bloodOrdered By: Tony Branch on 03-02-2025 CO2 [Moles/Vol] 27.1 mmol/L 21.0-32.0 [facility] Chloride assayOrdered By: Ra heather Branch on 03-02-2025 Chloride [Moles/Vol] 106 mmol/L 98-108 [facility] Comprehensive Metabolic Prof ilon 03-02-2025 Albumin [Mass/Vol] 4.4 g/dL Normal 3.4-4.8 [facility] Comment on above: Performed By: #### L 501.7900, L100.0100, L500.4050 #### [facility] [address] [place], [address] Albumin/Globulin [Mass ratio] 2.0 {ratio} Normal 0.9-2.4 [facility] Comment on above: Performed By: #### L 501.7900, L100.0100, L500.4050 #### [facility] [address] [place], [address] ALK PHOS 87 U/L Normal 35-104 [facility] Comment on above: Performed By: #### L 501.7900, L100.0100, L500.4050 #### [facility] [address] [place], [address] ALT [Catalytic activity/Vol] 14 U/L Normal <=34 [facility] Comment on above: Performed By: #### L 501.7900, L100.0100, L500.4050 #### [facility] [address] [place], [address] AST [Catalytic activity/Vol] 19 U/L Normal <=31 [facility] Comment on above: Performed By: #### L 501.7900, L100.0100, L500.4050 #### [facility] [address] [place], [address] Bilirubin [Mass/Vol] 0.25 mg/dL Normal 0.00-1.30 [facility] Comment on above: Performed By: #### L 501.7900, L100.0100, L500.4050 #### [facility] [address] [place], [address] BUN/CRE 17.1 RATIO Normal 10-20 [facility] Comment on above: Performed By: #### L 501.7900, L100.0100, L500.4050 #### [facility] [address] [place], [address] Calcium [Mass/Vol] 9.3 mg/dL Normal 7.6-11.0 [facility] Comment on above: Performed By: #### L 501.7900, L100.0100, L500.4050 #### [facility] [address] [place], [address] Chloride [Moles/Vol] 106 mmol/L Normal 98-108 [facility] Comment on above: Performed By: #### L 501.7900, L100.0100, L500.4050 #### [facility] [address] [place], [address] CO2 [Moles/Vol] 27.1 mmol/L Normal 21.0-32.0 [facility] Comment on above: Performed By: #### L 501.7900, L100.0100, L500.4050 #### [facility] [address] [place], [address] Creatinine [Mass/Vol] 0.61 mg/dL Low 0.70-1.20 [facility] Comment on above: Performed By: #### L 501.7900, L100.0100, L500.4050 #### [facility] [address] [place], [address] GAP 8 Normal 5-15 [facility] Comment on above: Performed By: #### L 501.7900, L100.0100, L500.4050 #### [facility] [address] [place], [address] GFR/1.73 sq M.predicted among non-blacks MDRD (S/P/Bld) [Vol rate/Area] 98 mL/min/{1.73_m2} Normal >60 [facility] Comment on above: Result Comment: mL/m in/1.73m2 CKD-EPI Creatinine Equation (2020) Performed By: #### L 501.7900, L100.0100, L500.4050 #### [facility] [address] [place], [address] Globulin (S) [Mass/Vol] 2.3 g/dL Normal 2.2-4.2 [facility] Comment on above: Performed By: #### L 501.7900, L100.0100, L500.4050 #### [facility] [address] [place], [address] Glucose [Mass/Vol] 104 mg/dL High 70-99 [facility] Comment on above: Performed By: #### L 501.7900, L100.0100, L500.4050 #### [facility] [address] [place], [address] Potassium [Moles/Vol] 4.2 mmol/L Normal 3.3-5.1 [facility] Comment on above: Performed By: #### L 501.7900, L100.0100, L500.4050 #### [facility] [address] [place], [address] Sodium [Moles/Vol] 141 mmol/L Normal 133-145 [facility] Comment on above: Performed By: #### L 501.7900, L100.0100, L500.4050 #### [facility] [address] [place], [address] T PROT 6.7 g/dL Normal 5.9-8.4 [facility] Comment on above: Performed By: #### L 501.7900, L100.0100, L500.4050 #### [facility] [address] [place], [address] Urea nitrogen [Mass/Vol] 11 mg/dL Normal 4-19 [place] [facility] Comment on above: Performed By: #### L 501.7900, L100.0100, L500.4050 #### [facility] [address] [place], [address] Eosinophil percentageOrdered By: Tony Branch on 03-02-2025 Eosinophils/100 WBC (Bld) 5.4 % High 0-5 [facility] Erythrocyte distribution wid th ratioOrdered By: Tonycandace Branch on 03-02-2025 Erythrocyte distribution width (RBC) [Ratio] 12.0 % 11.6-14.6 [facility] Erythrocyte distribution wid th standard deviationOrdered By: Tony [facility] on 03-02-2025 Erythrocyte distribution width (RBC) [Ratio] 43.6 fl 35.1-43.9 [facility] Glomerular filtration rate ( GFR) estimation/1.73 sq m using serum, plasma, or whole bOrdered By: Tonycandace Branch on 03-02-2025 GFR/1.73 sq M.predicted among non-blacks MDRD (S/P/Bld) [Vol rate/Area] 98 mL/min/{1.73_m2} >60 [facility] Comment on above: mL/min/1.73m2 CKD-EP I Creatinine Equation (2020) Hematocrit Auto (Bld) [Volum e fraction]Ordered By: Tony Branch on 03-02-2025 Hematocrit (Bld) [Volume fraction] 38.5 % 37-47 [facility] Hemoglobin measurementOrdere d By: Tony Branch on 03-02-2025 Hemoglobin (Bld) [Mass/Vol] 12.9 g/dL 12.0-15.0 [facility] Immature granulocytes/100 WB C Auto (Bld)Ordered By: [facility] on 03-02-2025 Immature granulocytes/100 WBC (Bld) 0.400 % 0.0-0.9 [facility] Comment on above: IG% - Immature Granu locytes (promyelocytes, myelocytes and metamyelocytes) > 1% indicates that a LEFT SHIFT is Present. Laboratory - Chemistry and C hemistry - challengeOrdered By: Tony Branch on 03-02-2025 AST [Catalytic activity/Vol] 19 U/L <32 [facility] MCV (mean corpuscular volume ) determinationOrdered By: Tony Branch on 03-02-2025 MCV (RBC) [Entitic vol] 99.7 fL High 81-[address] [facility] Mean corpuscular hemoglobin (MCH) determinationOrdered By: Tony Branch on 03-02-2025 MCH (RBC) [Entitic mass] 33.4 pg High 27.0-32.0 [facility] Mean corpuscular hemoglobin concentration (MCHC) determinationOrdered By: Tony Branch on 03-02-2025 MCHC (RBC) [Mass/Vol] 33.5 g/dL 32-36 [facility] Mean platelet volume determi nationOrdered By: Tony Branch on 03-02-2025 Platelet mean volume (Bld) [Entitic vol] 10.9 fL 6.2-12.0 [facility] Monocyte percentageOrdered B y: Tony Branch on 03-02-2025 Monocytes/100 WBC (Bld) 6.5 % 0-[address] [facility] Neutrophil percentageOrdered By: Tony Branch on 03-02-2025 Neutrophils/100 WBC (Bld) 52.5 % 47-70 [facility] Nucleated red blood cell per centageOrdered By: Tony Branch on 03-02-2025 Nucleated RBC/100 WBC (Bld) [Ratio] 0 % 0-5 [facility] Platelet countOrdered By: Ra heather Branch on 03-02-2025 Platelets (Bld) [#/Vol] 203 10*3/uL 150-450 [facility] Potassium measurement (mass/ volume)Ordered By: Tony Branch on 03-02-2025 Potassium (Unsp spec) [Mass/Vol] 4.2 mmol/L 3.3-5.1 [facility] RBC Auto (Bld) [#/Vol]Ordere d By: Tony Branch on 03-02-2025 RBC (Bld) [#/Vol] 3.86 10*6/uL Low 4.2-5.4 [facility] Serum creatinine measurement (mass/volume)Ordered By: Tony Branch on 03-02-2025 Creatinine [Mass/Vol] 0.61 mg/dL Low 0.70-1.20 [facility] Serum globulin measurementOr dered By: Tony Branch on 03-02-2025 Globulin (S) [Mass/Vol] 2.3 g/dL 2.2-4.[address] [facility] Serum glucose measurement (m ass/volume)Ordered By: Tony Branch on 03-02-2025 Glucose [Mass/Vol] 104 mg/dL High 70-99 [facility] Serum or plasma alanine crow otransferase (ALT) measurementOrdered By: Tony Branch on 03-02-2025 ALT [Catalytic activity/Vol] 14 U/L <35 [facility] Serum or plasma albumin jahaira urement (mass/volume)Ordered By: Tony Branch on 03-02-2025 Albumin [Mass/Vol] 4.4 g/dL 3.4-4.8 [facility] Serum or plasma albumin/glob ulin mass ratioOrdered By: Tony Branch on 03-02-2025 Albumin/Globulin [Mass ratio] 2.0 {ratio} 0.9-2.4 [facility] Serum or plasma alkaline rona sphatase measurementOrdered By: Tony Branch on 03-02-2025 ALP [Catalytic activity/Vol] 87 U/L 35-104 [facility] Serum or plasma calcium jahaira urement (mass/volume)Ordered By: Tony Branch on 03-02-2025 Calcium [Mass/Vol] 9.3 mg/dL 7.6-11.0 [facility] Serum or plasma carbamazepin e level (mass/volume)Ordered By: Tony Branch on 03-02-2025 carBAMazepine [Mass/Vol] 5.2 ug/mL 4.0-12.0 [facility] Serum or plasma urea nitroge n measurement (mass/volume)Ordered By: Tony Branch on 03-02-2025 Urea nitrogen [Mass/Vol] 11 mg/dL 4-19 [facility] Sodium levelOrdered By: Anneliese Branch on 03-02-2025 Sodium [Moles/Vol] 141 mmol/L 133-145 [facility] Total proteinOrdered By: Joni Branch on 03-02-2025 Protein [Mass/Vol] 6.7 g/dL 5.9-8.4 [facility] White blood cell (WBC) count Ordered By: Tony Branch on 03-02-2025 WBC (Bld) [#/Vol] 2.8 10*3/uL Low 4.4-11.0 [facility] Neurology Visit Reporton Neurology Visit Report [facility] [address], [address] [place] [address] OFFICE VISIT Date of Service: 02/09/25 MR#: [id number] Acct: [id number] Name: SHAN KLINE Rep #: [id number] : 1960 Provider: Dr. Tony chew MD Age/Sex: 64/F [place] [facility] [place]: Signed HPI HPI Chief Complaint: Details: Interim History: Shan returns for follow-up visit. In 2019, she began having continuous left-sided facial pain that primarily affected the left maxillary region and also, at times, the left mandibular region and infrequently the left temporal region. She described the pain as throbbing in character and the pain fluctuates in severity. Touching the left side of her face, facial exposure to cold air, yawning/opening her mouth and chewing food can exacerbate her pain. Lnvb-[id number] ibuprofen up to a total of 4 tablets daily as needed for her pain was of benefit but was sedating. Flurbiprofen is of benefit. Phenytoin, initiated in 2021, was initially of moderate benefit however later, phenytoin lost efficacy and was discontinued in 2023. She has continued to have some facial pain. Gabapentin was initiated. Her dose of gabapentin was increased to 600 mg 3 times daily in March 2024 and she reported that since the latter part of April 2024 her facial pain has nearly subsided completely; the medication was sedating and was reduced to 400mg TID; this was not of benefit and gabapentin was discontinued. Baclofen, for her facial pain, was sedating. She is currently taking carbamazepine 200 mg twice daily. She is experiencing slight lightheadedness as a side effect of the medication. Individual occurrences of her facial pain have lasted up to 1 to 2 weeks then she may have a period of 1 week of pain reduction. Over the past 2 weeks her facial pain has diminished significantly. She is unaware of any clear precipitating event for the onset of her pain. She did not have any preceding facial infection or upper respiratory tract infection. She had dental work in years past including a left mandibular root canal performed. She has seen a dentist and another dental specialist regarding her facial pain and no dental pathology to account for her left-sided pain was identified. She did not have any history of Bermudez's palsy or facial trauma. She saw an ENT specialist, Dr. Charles, and no structural pathology to account for her symptoms was identified. A facial and sinus CT scan was unremarkable. She denied having numbness, speech difficulty, swallowing difficulty, facial weakness or facial numbness. She did not have an associated rash. Oxcarbazepine, initiated in 2021, was not of sustained benefit and may possibly have caused a reduction of her white blood count and was discontinued. Her white blood count however has remained low (this is improved). She saw a maid supervisor regarding her low white blood count and the patient stated that no definite cause was identified for her low white blood count, though the possibility that her low white blood count (which is asymptomatic) may have been a side effect of phenytoin was suspected. Physical Exam: Neuro: The patient is awake and alert and responds appropriately; speech is fluent Heart: Regular rate and rhythm Supplemental Info CT facial/sinus (12/19/2021): FINDINGS: FRONTAL SINUSES: Normal aeration, without mucosal inflammatory disease. ETHMOIDAL SINUSES: Normal aeration, without mucosal inflammatory disease. MAXILLARY SINUSES: Normal aeration, without mucosal inflammatory disease. SPHENOIDAL SINUSES: Normal aeration, without mucosal inflammatory disease. There is patency of the bilateral maxillary infundibuli with normal uncinate processes, ethmoid bullae, and hiatus semilunaris. Normal bilateral middle turbinates. Normal bilateral inferior turbinates. Normal midline nasal septum. There is patency of the bilateral nasal airways. The visualized osseous structures are normal. The visualized bilateral orbital contents are normal. IMPRESSION: Normal CT examination of the maxillofacial sinuses. These images were reviewed on 01/24/2022. Head MRI without contrast with attention to the internal auditory canals (02/07/2022): 1. Normal unenhanced and enhanced MRI of the bilateral internal auditory canals (I.A.C''s). 2. The unenhanced trigeminal as well as the 4th and 6th cranial nerves are well visualized and appear to be normal in thickness and signal. No abnormal enlargement or cyst or focal mass is seen within the visualized portions of the nerve roots. Chronic and benign sclerosis in the left mandibular molar region either related to asymmetric demineralization or sequela of chronic inflammation.??? Refer to prior CT of the facial bone study dated December 19, 2021 which is a better exam for bony detail.??? No interval changes have occurred since that study. These images were reviewed on 05/22/2022. Slig (more content not included)... Normal [facility] Neurology Visit Reporton Neurology Visit Report [facility] [address], [address] [place] [address] OFFICE VISIT Date of Service: 12/22/24 MR#: [id number] Acct: [id number] Name: SHAN LKINE PAIGE Rep #: [id number] : 1960 Provider: Dr. Tony chew MD Age/Sex: 64/F [place] [facility] [place] Status: Signed HPI HPI Chief Complaint: Details: Interim History: Shan returns for follow-up visit. In 2019, she began having continuous left-sided facial pain that primarily affected the left maxillary region and also, at times, the left mandibular region and infrequently the left temporal region. She described the pain as throbbing in character and the pain fluctuates in severity. Touching the left side of her face, facial exposure to cold air, yawning/opening her mouth and chewing food can exacerbate her pain. [id number] ibuprofen up to a total of 4 tablets daily as needed for her pain was of benefit but was sedating. Flurbiprofen has been of some benefit. Phenytoin, initiated in 2021, was initially of moderate benefit (she reduced her dose of phenytoin to 100 mg twice daily (she discontinued phenytoin 50 mg every midday since this additional dose caused midday dizziness)) however later, this medication lost efficacy and was discontinued in 2023.. She has continued to have some facial pain. Gabapentin was initiated. Her dose of gabapentin was increased to 600 mg 3 times daily in March 2024 and she reports that since the latter part of April 2024 her facial pain has nearly subsided completely; the medication was sedating and was reduced to 400mg TID; this was not of benefit and gabapentin was discontinued. Baclofen, for her facial pain, was sedating. She is currently taking carbamazepine 100mg daily; this has been well tolerated but has not been of benefit for her facial pain. She is unaware of any clear precipitating event for the onset of her pain. She did not have any preceding facial infection or upper respiratory tract infection. She had had dental work in years past including a left mandibular root canal performed. She has seen a dentist and another dental specialist regarding her facial pain and no dental pathology to account for her left-sided pain was identified. She did not have any history of Bermudez's palsy or facial trauma. She saw an ENT specialist, Dr. Charles, and no structural pathology to account for her symptoms was identified. A facial and sinus CT scan was unremarkable. She denied having numbness, speech difficulty, swallowing difficulty, facial weakness or facial numbness. She did not have an associated rash. She denied any other history of head pain. Oxcarbazepine, initiated in 2021, was not of sustained benefit and may possibly have caused a reduction of her white blood count and was discontinued. Her white blood count however has remained low (this is improved). She has seen a maid supervisor regarding her low white blood count and the patient stated that no definite cause was identified for her low white blood count, though the possibility that her low white blood count (which is asymptomatic) may have been a side effect of phenytoin was suspected. Individual occurrences of her facial pain have lasted up to 1 to 2 weeks then she may have a period of 1 week of pain reduction. Physical Exam: Neuro: The patient is awake and alert and responds appropriately; speech is fluent Heart: Regular rate and rhythm Supplemental Info CT facial/sinus (12/19/2021): FINDINGS: FRONTAL SINUSES: Normal aeration, without mucosal inflammatory disease. ETHMOIDAL SINUSES: Normal aeration, without mucosal inflammatory disease. MAXILLARY SINUSES: Normal aeration, without mucosal inflammatory disease. SPHENOIDAL SINUSES: Normal aeration, without mucosal inflammatory disease. There is patency of the bilateral maxillary infundibuli with normal uncinate processes, ethmoid bullae, and hiatus semilunaris. Normal bilateral middle turbinates. Normal bilateral inferior turbinates. Normal midline nasal septum. There is patency of the bilateral nasal airways. The visualized osseous structures are normal. The visualized bilateral orbital contents are normal. IMPRESSION: Normal CT examination of the maxillofacial sinuses. These images were reviewed on 01/24/2022. Head MRI without contrast with attention to the internal auditory canals (02/07/2022): 1. Normal unenhanced and enhanced MRI of the bilateral internal auditory canals (I.A.C''s). 2. The unenhanced trigeminal as well as the 4th and 6th cranial nerves are well visualized and appear to be normal in thickness and signal. No abnormal enlargement or cyst or focal mass is seen within the visualized portions of the nerve roots. Chronic and benign sclerosis in the left mandibular molar region either related to asymmetric demineralization or sequela of chronic inflammation.??? Refer to prior CT of the facial bone study dated December 19 (more content not included)... Normal [facility] Absolute lymphocyte countOrd ered By: Dr. Branch on 11-27-2022 Lymphocytes Auto (Unsp spec) [#/Vol] 0.89 10*3/uL 0.83-4.51 [facility] Basophil percentageOrdered B y: Dr. Branch on 11-27-2022 Basophils/100 WBC (Bld) 1.2 % 0-[address] [facility] Eosinophils/100 WBC (Bld) 5.8 % 0-5 [facility] Neutrophils (Bld) [#/Vol] 1.2 10*3/uL 2.0-7.7 [facility] Neutrophils/100 WBC (Bld) 50.8 % 47-70 [facility] WBC (Bld) [#/Vol] 2.4 10*3/uL 4.4-11.0 [facility] Blood erythrocytes count (nu mber/volume)Ordered By: Dr. Branch on 11-27-2022 RBC (Bld) [#/Vol] 3.91 10*6/uL 4.2-5.4 [facility] Blood hemoglobin measurement (mass/volume)Ordered By: Dr. Branch on 11-27-2022 Hemoglobin (Bld) [Mass/Vol] 13.2 g/dL 12.0-15.0 [facility] Blood lymphocytes/100 leukoc ytesOrdered By: Dr. Branch on 11-27-2022 Lymphocytes/100 WBC (Bld) 36.8 % 19-41 [facility] Blood monocytes/100 leukocyt esOrdered By: Dr. Branch on 11-27-2022 Monocytes/100 WBC (Bld) 5.4 % 0-[address] [facility] Blood platelet mean volumeOr dered By: Dr. Branch on 11-27-2022 Platelet mean volume (Bld) [Entitic vol] 11.4 fL 6.2-12.0 [facility] Determination of erythrocyte mean corpuscular volume (MCV)Ordered By: Dr. Branch on 11-27-2022 MCV (RBC) [Entitic vol] 102.6 fL 81-[address] [facility] Hematocrit Auto (Bld) [Volum e fraction]Ordered By: Dr. Branch on 11-27-2022 Hematocrit (Bld) [Volume fraction] 40.1 % 37-47 [facility] - Hematology and Cell countsOrdered By: Dr. Branch on 11-27-2022 Erythrocyte distribution width (RBC) [Entitic vol] 44.2 fL 35.1-43.9 [facility] Erythrocyte distribution width (RBC) [Ratio] 11.8 % 11.6-14.6 [facility] Immature granulocytes/100 WBC (Bld) 0.000 % 0.0-0.9 [facility] Comment on above: IG% - Immature Granu locytes (promyelocytes, myelocytes and metamyelocytes) > 1% indicates that a LEFT SHIFT is Present. MCH (RBC) [Entitic mass] 33.8 pg 27.0-32.0 [facility] Nucleated RBC/100 WBC (Bld) [Ratio] 0 % 0-5 [facility] MCHC Auto (RBC) [Mass/Vol]Or dered By: Dr. Branch on 11-27-2022 MCHC (RBC) [Mass/Vol] 32.9 g/dL 32-36 [facility] Platelets bldOrdered By: Dr. Branch on 11-27-2022 Platelets (Bld) [#/Vol] 180 10*3/uL 150-450 [facility] Serum or plasma phenytoin me asurement (mass/volume)Ordered By: Dr. Branch on 11-27-2022 Phenytoin [Mass/Vol] 24.2 mL 10.0-20.0 [facility] Office Visiton 11-30-2021 Follow-up visit Diagnoses/Problems Parotid gland pain (527.8) (K11.8) Orders Parotid gland pain Otolaryngology - Otology Referral Evaluation and Treatment Evaluate AND Treat Status: Hold For - Scheduling Requested for: 30Nov2021 SocHx: Never a smoker Tobacco Use Screening; Status:Complete; Done: 30Nov2021 Patient Discussion/Summary She has left parotid area pain as well as pain in the area of the graft. I am not sure if the 2 are related. The pain does not seem to be typical of trigeminal neuralgia but more localized in the parotid gland. Since I am not feeling a mass I am not going to order imaging. To sort this out though I would like to refer her to Dr. Charles. And defer imaging to him. She is finding relief with ibuprofen, but I agree with her that this is not a sustainable solution. Chief Complaint Facial pain History of Present IllnessCouple years Facial pain left jaw to ear has been to specialist and felt not to be dental Gradual onset anterior jaw and then more intense in front of the ear Not on cheek but now in lower christian Ibuprofen daily helps until it wears off Some puffiness in parotid area No Xrays except dental Bone graft in jaw before onset. Had fracture in a tooth So thought that may have set it off SN, RN, ST, PND not noted No numbness of face or of the arm No neck pain No wind sensitivity Surgical History History of Appendectomy History of section Social History Does not have living will Never a smoker No recent foreign travel Allergies clindamycin Recorded By: Augusta Hinojosa; 11/30/2021 8:35:16 AM Current Meds Medication NameInstruction No Reported Medications Vitals Vital Signs Recorded: 30Nov2021 08:35AM Heart Rate72 [id number], LUE Aqnajgnno76, LUE Height5 ft 5.5 in Scqqsw677 lb BMI Xhkhcqaesf24.47 kg/m2 BSA Calculated1.66 Tobacco Useb) No PHQ-2 #1. Over the last 2 weeks have you felt down, depressed or hopeless? (If yes, answer PHQ-9 below)No PHQ-2 #2. Over the last 2 weeks have you felt little interest or pleasure in doing things? (If yes, answer PHQ-9 below)No Physical Exam Alert and oriented x3. No acute distress. Lungs are clear with good air exchange. Heart regular rate and rhythm. Neck with no significant tenderness but she is tight with tipping to the right and rotating to the left. This does not reproduce the pain in the jaw. Ears nose and throat are all clear. She cannot open her mouth normally. No TMJ tenderness. But she does have tenderness over the parotid gland and then over the mandible anterolateral. There is no swelling of the mandible or of the parotid. No deformity of the jaw. No cervical adenopathy. Signatures Electronically signed by : Pravin Siddiqi MD; Nov 30 2021 9:31AM EST (Author) [employer] Tobacco Screening.on 022 Adult depression screening assessment No -[facility] Work Phone: Tobacco use status CPHS b) No [facility] Work Phone: Vital Signs Date Time Vital Sign Value Performing Clinician Faci lity 05-26-2025 08:03-0400 Body height 165.[address] Pravin Siddiqi MD Work Phone: [facility] 05-26-2025 08:03-0400 Body mass index (BMI) [Ratio] 19.7 kg/m2 Dr. Pravin Siddiqi MD Work Phone: [facility] 05-26-2025 08:03-0400 Body temperature 96 [degF] Dr. Pravin Siddiqi MD Work Phone: [facility] 05-26-2025 08:03-0400 Body weight 53.[address] Pravin Siddiqi MD Work Phone: [facility] 05-26-2025 08:03-0400 Diastolic blood pressure 69 mm[Hg] Dr. Pravin Siddiqi MD Work Phone: [facility] 05-26-2025 08:03-0400 Heart rate 83 /min Dr. Pravin Siddiqi MD Work Phone: [facility] 05-26-2025 08:03-0400 Respiratory rate 16 /min Dr. Pravin Siddiqi MD Work Phone: [facility] 05-26-2025 08:03-0400 SaO2% (BldA) [Mass fraction] 95 % Dr. Pravin Siddiqi MD Work Phone: [facility] 05-26-2025 08:03-0400 Systolic blood pressure 109 mm[Hg] Dr. Pravin Siddiqi MD Work Phone: [facility] 02-09-2025 08:25-0400 Body height 165.[address] Pravin Siddiqi MD Work Phone: [phone] [place] [address] 02-09-2025 08:25-0400 Body mass index (BMI) [Ratio] 20.2 kg/m2 Dr. Pravin Siddiqi MD Work Phone: [phone] [place] [address] 02-09-2025 08:25-0400 Body temperature 98.4 [degF] Dr. Pravin iSddiqi MD Work Phone: [facility] 02-09-2025 08:25-0400 Body weight 55.[address] Pravin Siddiqi MD Work Phone: [facility] 02-09-2025 08:25-0400 Diastolic blood pressure 64 mm[Hg] Dr. Pravin Siddiqi MD Work Phone: [facility] 02-09-2025 08:25-0400 Heart rate 64 /min Dr. Pravin Siddiqi MD Work Phone: [facility] 02-09-2025 08:25-0400 Respiratory rate 16 /min Dr. Pravin Siddiqi MD Work Phone: [facility] 02-09-2025 08:25-0400 SaO2% (BldA) [Mass fraction] 94 % Dr. Pravin Siddiqi MD Work Phone: [facility] 02-09-2025 08:25-0400 Systolic blood pressure 102 mm[Hg] Dr. Pravin Siddiqi MD Work Phone: [facility] 12-22-2024 10:32-0400 Body mass index (BMI) [Ratio] 20 kg/m2 Dr. Pravin Siddiqi MD Work Phone: [facility] 12-22-2024 10:32-0400 Body temperature 98.6 [degF] Dr. Pravin Siddiqi MD Work Phone: [facility] 12-22-2024 10:32-0400 Body weight 54.[address] Pravin Siddiqi MD Work Phone: [facility] 12-22-2024 10:32-0400 Diastolic blood pressure 60 mm[Hg] Dr. Pravin Siddiqi MD Work Phone: [facility] 12-22-2024 10:32-0400 Heart rate 69 /min Dr. Pravin Siddiqi MD Work Phone: [facility] 12-22-2024 10:32-0400 Respiratory rate 15 /min Dr. Pravin Siddiqi MD Work Phone: [facility] 12-22-2024 10:32-0400 SaO2% (BldA) [Mass fraction] 96 % Dr. Pravin Siddiqi MD Work Phone: [facility] 12-22-2024 10:32-0400 Systolic blood pressure 102 mm[Hg] Dr. Pravin Siddiqi MD Work Phone: [facility] 10-03-2022 10:58-0500 Body height 165.[address] Pravin Siddiqi Work Phone: [facility] 10-03-2022 10:58-0500 Body mass index (BMI) [Ratio] 21.2 kg/m2 Dr. Pravin Siddiqi Work Phone: [facility] 10-03-2022 10:58-0500 Body temperature 98.6 [degF] Dr. Pravin Siddiqi Work Phone: [facility] 10-03-2022 10:58-0500 Body weight 58.[address] Pravin Siddiqi Work Phone: [facility] 10-03-2022 10:58-0500 Diastolic blood pressure 80 mm[Hg] Dr. Pravin Siddiqi Work Phone: [facility] 10-03-2022 10:58-0500 Heart rate 67 /min Dr. Pravin Siddiqi Work Phone: [facility] 10-03-2022 10:58-0500 Respiratory rate 16 /min Dr. Pravin Siddiqi Work Phone: [facility] 10-03-2022 10:58-0500 SaO2% (BldA) [Mass fraction] 97 % Dr. Pravin Siddiqi Work Phone: [facility] 10-03-2022 10:58-0500 Systolic blood pressure 120 mm[Hg] Dr. Pravin Siddiqi Work Phone: [facility] 01-24-2022 10:19-0400 Body height 166.[address] Pravin Siddiqi Work Phone: [facility] Work Phone: 01-24-2022 10:19-0400 Body mass index (BMI) [Ratio] 21.2 kg/m2 Dr. Pravin Siddiqi Work Phone: [facility] Work Phone: 01-24-2022 10:19-0400 Body temperature 98.4 [degF] Dr. Pravin Siddiqi Work Phone: [facility] Work Phone: 01-24-2022 10:19-0400 Body weight 58.[address] Praivn Siddiqi Work Phone: [facility] Work Phone: 01-24-2022 10:19-0400 Diastolic blood pressure 78 mm[Hg] Dr. Pravin Siddiqi Work Phone: [facility] Work Phone: 01-24-2022 10:19-0400 Heart rate 73 /min Dr. Pravin Siddiqi Work Phone: [facility] Work Phone: 01-24-2022 10:19-0400 Respiratory rate 16 /min Dr. Pravin Siddiqi Work Phone: [facility] Work Phone: 01-24-2022 10:19-0400 SaO2% (BldA) [Mass fraction] 96 % Dr. Pravin Siddiqi Work Phone: [facility] Work Phone: 01-24-2022 10:19-0400 Systolic blood pressure 118 mm[Hg] Dr. Pravin Siddiqi Work Phone: [facility] Work Phone: 11-30-2021 08:35-0500 Body height 166.37 cm Pravin Siddiqi Work Phone: [facility] Work Phone: 11-30-2021 08:35-0500 Body mass index (BMI) [Ratio] 21.47 kg/m2 Pravin Siddiqi Work Phone: [facility] Work Phone: 11-30-2021 08:35-0500 Body surface area Derived from formula 1.66 m2 Pravin Siddiqi Work Phone: [facility] Work Phone: 11-30-2021 08:35-0500 Body weight 59.42 kg Pravin Siddiqi Work Phone: [facility] Work Phone: 11-30-2021 08:35-0500 Diastolic blood pressure 70 mm[Hg] Pravin Siddiqi Work Phone: [facility] Work Phone: 11-30-2021 08:35-0500 Heart rate 72 /min Prvain Siddiqi Work Phone: [facility] Work Phone: 11-30-2021 08:35-0500 Systolic blood pressure 118 mm[Hg] Pravin Siddiqi Work Phone: [facility] Work Phone: Encounters Encounter Date Encounter Type Care Provider Facility Start: 08-10-2025 End: 08-10-2025 ambulatory Pravin Siddiqi Facility:[facility] Start: 05-26-2025 End: 05-26-[address] Tony Branch MD -[facility] Work Phone: Start: 05-26-2025 End: 05-26-[address] Pravin Siddiqi MD Work Phone: -[facility] Start: 03-02-2025 End: 03-02-[address] Pravin Siddiqi MD Work Phone: [facility] Work Phone: Start: 03-02-2025 End: 03-02-[address] Tony Branch MD -Laboratory Work Phone: Start: 03-02-2025 End: 03-02-2025 ambulatory Tony Branch Facility:[facility] Start: 02-09-2025 End: 02-09-[address] Tony Branch MD -[facility] Work Phone: Start: 02-09-2025 End: 02-09-2025 ambulatory Tony Branch Facility:[facility] Start: 12-22-2024 End: 12-22-[address] Tony Branch MD -[facility] Work Phone: Start: 12-22-2024 End: 12-22-2024 ambulatory Tony Branch Facility:[facility] Start: 11-27-2022 End: 11-27-[address] Pravin Siddiqi Work Phone: [facility] Work Phone: Start: 11-27-2022 End: 11-27-[address] Pravin Siddiqi Work Phone: [facility] Start: 10-03-2022 End: 10-03-[address] Pravin Siddiqi Work Phone: [facility] Start: 02-07-2022 End: 02-07-[address] [facility] Start: 01-24-2022 End: 01-24-[address] Pravin Siddiqi Work Phone: [facility] Start: 12-19-2021 End: 12-19-[address] rPavin Siddiqi Work Phone: [facility]-Cat Scan, [facility] Start: 11-30-2021 Office outpatient vi sit 15 minutes Pravin Siddiqi Work Phone: [facility] Work Phone: Start: 10-29-2020 End: 10-29-2020 Patient encounter procedure Michelle Colón [facility] [facility] Procedures Date Procedure Procedure Detail Performing Clinician Start: 02-07-2022 MRI of brain without contrast Dr. Pravin Siddiqi Work Phone: Start: 12-19-[address] Pravin Siddiqi Work Phone: Appendectomy Pravin Siddiqi Work Phone: section Pravin chavez Work Phone: Plan of Treatment Date Care Activity Detail Author Start: 11-26-2020 COVID-19 Vaccine (Moderna) (#2) COVID-19 Vaccine (Moderna) (#2) [facility] Start: 11-26-2020 End: 11-26-2020 Immunization 11/26/2020 Immunization Primary Care Mamie Martinez MD [address] [facility] [place] [address] [place] [address] [phone] [facility] Start: 06-15-2020 Influenza vaccination given Sequential Influenza Vaccine (#1) [facility] Start: 2008 Administration of herpes zoster vaccine Zoster Vaccines (1 of 2) [facility] Start: 2008 Screening for malignant neoplasm of colon [facility] Start: 1976 Hepatitis C antibody, confirmatory test Hepatitis C Screening [facility] Start: 1973 HIV screening HIV Screening [facility] Start: 1970 Adolescent depression screening assessment Depression Screening (PHQ9) [facility] Start: 1961 History and physical examination, annual for health maintenance Wellness Visit [facility] Start: 1958 Screening for malignant neoplasm of cervix Pap Smear [facility] Start: 1958 Screening mammography Mammogram [facility] Start: 1958 Tetanus vaccination Tetanus: Every 10yrs [facility] Immunizations Immunization Date Immunization Notes Care Provider Fa cility 11-26-2020 Moderna COVID-19 Vaccine 100 MCG/0.5ML Intramuscular Suspension Pravin Siddiqi Work Phone: [facility] Work Phone: 10-29-2020 Moderna SARS-CoV-2 Vaccination Michelle Barbaradawit [facility] 08-10-2009 influenza virus vaccine, whole virus Pravin Siddiqi Work Phone: [facility] Work Phone: Payers Date Payer Category Payer Self-pay [id number] 2024 Medicare [id number] 2024 Unknown [id number] Unknown [facility] [employer] Unknown [id number] 2 Unknown [id number] 2 Unknown [id number] 2 Unknown [id number] 2 Unknown [id number] 2 Social History Date Type Detail Facility Tobacco smoking stat us [facility] Assigned At Not on file [place] [facility] Exposure to SARS-CoV -2 (event) Not sure [facility] Never a smoker Never a smoker [facility] Work Phone: Start: 01-24-2022 End: 10-03-2022 Tobacco smoking status NHIS Unknown if ever smoked [facility] Start: 1960 Sex Assigned At Female [facility] Start: 10-11-2023 [facility] Evaluation note 02-09-2025 Note Date & Type Note Facility 02-09-2025 Evaluation note Diagnosis Onset Date Resolution Atypical facial pain chronic [facility] 2024 8:23am Atypical facial pain chronic [facility] 2024 7:57am [facility] Work Phone: Evaluation note 12-22-2024 Note Date & Type Note Facility 12-22-2024 Evaluation note Diagnosis Onset Date Resolution Atypical facial pain chronic [facility] 2024 10:31am Atypical facial pain chronic [facility] 2024 8:23am [facility] Work Phone: Progress note 12-16-2020 Note Date & Type Note Facility 12-16-2020 Note HNO ID: [id number] Author: Momo Sutton Service: ? Author Type: Physician Type: Progress Notes Filed: 12/16/2020 6:28 PM Note Text: ASSESSMENT/PLAN: 1. Posterior vitreous detachment of both eyes - ICD9: 379.21, ICD10: H43.813 (primary diagnosis) 2. History of repair of retinal tear by laser photocoagulation - ICD9: V45.69, ICD10: Z98.890 Stable/Monitor Patient was given both written and verbal information on flashes and floaters. Patient was instructed to call the office ([phone]) immediately upon noticing flashes of light, increase in floaters, or changes in vision. Blood vessels in the left eye are dilated and torteous - recommend patient see her family phsician, Dr. Siddiqi for blood pressure check up Patient to follow up with Dr. Greenwood in 6 weeks for a dilated exam I have confirmed and edited as necessary the relevant ophthalmic history, review of systems, surgical history, and ophthalmological examination findings as obtained by the ophthalmic technical staff. I have seen and examined Shan Kline. I have discussed the examination findings, diagnosis, and treatment options with Shan Kline and/or her family. I have also reviewed and agree with the assessment and plan as stated above and agree with all its relevant components. I gave the patient the opportunity to ask questions about the findings, diagnosis, and treatment options. Momo Sutton MD [facility] Progress note 12-16-2020 Note Date & Type Note Facility 12-16-2020 Note HNO ID: [id number] Author: [facility] [place] Service: ? Author Type: ? Type: Progress Notes Filed: 12/16/2020 6:28 PM Note Text: [facility] Chief complaint+Reason for visit Narrative Note Date & Type Note Facility Chief complaint+Reason for visit Narrative Reason for Visit Atypical facial pain [facility] Work Phone: Evaluation note Note Date & Type Note Facility Evaluation note Diagnosis Onset Date Atypical facial pain chronic [facility] Work Phone: History of Present illness Narrative Note Date & Type Note Facility History of Present illness Narrative Couple yearsFacial pain left jaw to earhas been to specialist and felt not to be dentalGradual onset anterior jaw and then more intense in front of the earNot on cheek but now in lower templeIbuprofen daily helps until it wears offSome puffiness in parotid areaNo Xrays except dentalBone graft in jaw before onset.Had fracture in a toothSo thought that may have set it Kalpana, RN, ST, PND not notedNo numbness of face or of the armNo neck painNo wind sensitivity [facility] Work Phone: Reason for referral (narrative) Note Date & Type Note Facility Reason for referral (narrative) No reason for referral information available [facility] Work Phone: Advance Directives No Advanced Directives Records FoundDocuments on File Type Date Recorded 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 Advance Directives and Living Will Summary Purpose Family History No Family History Records FoundUnknown Family Member Name Dates Details Family history of malignant neoplasm: Father(V16.9, Z80.9) Status:Active Family history of dementia: Mother, Father(V17.2, Z81.8) Status:Active Relationship Condition Age at Onset Recorded Date/T tika father Malignant neoplasm of lung Unknown Hearing loss Unknown Relationship Condition Age at Onset Recorded Date/T tika father Malignant neoplasm of lung Unknown Hearing loss Unknown mother Dementia Unknown grandfather Myocardial infarction Unknown Chief Complaint Facial pain Chief Complaint and Reason for Visit Chief Complaint 4 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 Reason for Visit Atypical facial pain Chief Complaint Admit Date 6 M FU December 22, 2024 10: 31am 6 WKS February 09, 2025 8:2 3am INT [facility] March 02, 2025 8:07a m Reason for Visit Admit Date Atypical facial pain December 22, 2024 10 :31am Atypical facial pain February 09, 2025 8: 23am Chief Complaint Admit Date 6 WKS February 09, 2025 8:2 3am INT [facility] March 02, 2025 8:07a m Facial pain May 26, 2025 7: 57am Reason for Visit Admit Date Atypical facial pain February 09, 2025 8: 23am Atypical facial pain May 26, 2025 7 :57am Additional Source Comments INFORMATION SOURCE (unrecogn ized section and content) DATE CREATED AUTHOR 11/23/2021 [facility] DATE CREATED AUTHOR AUTHOR'S ORGANIZ ATION 12/01/2021 [employer] DATE CREATED AUTHOR AUTHOR'S ORGANIZ ATION 08/11/2025 [facility] Goals (unrecognized section and content) Goals may be documented in a n alternate sectionGoals may be documented in an alternate sectionGoals may be documented in an alternate sectionGoals may be documented in an alternate section Care Teams (unrecognized sec tion and content) Team Status: Active Member Role Status Dates Dr. Pravin Siddiqi MD Primary Care Provider Active Team Status: Inactive Member Role Status Dates Dr. Pravin Siddiqi MD Primary Care Provider, Referri ng Provider Active Dr. Tony Branch MD Attending Provider Active Team Status: Inactive Member Role Status Dates Dr. Pravin Siddiqi MD Primary Care Provider Active Dr. Tony Branch MD Attending Provider, Referring Provider Active Team Status: Inactive Member Role Status Dates Dr. Pravin Siddiqi MD Primary Care Provider Active Start: December 22, 2024 End: December 22, 2024 Dr. Pravin Siddiqi MD Referring Provider Active Start: December 22, 2024 End: December 22, 2024 Dr. Tony Branch MD Attending Provider Active Start: December 22, 2024 End: December 22, 2024 Team Status: Inactive Member Role Status Dates Dr. Pravin Siddiqi MD Primary Care Provider Active Start: February 09, 2025 End: February 09, 2025 Dr. Pravin Siddiqi MD Referring Provider Active Start: February 09, 2025 End: February 09, 2025 Dr. Tony Branch MD Attending Provider Active Start: February 09, 2025 End: February 09, 2025 Team Status: Inactive Member Role Status Dates Dr. Pravin Siddiqi MD Primary Care Provider Active Start: March 02, 2025 End: March 02, 2025 Dr. Tony Branch MD Attending Provider Active Start: March 02, 2025 End: March 02, 2025 Dr. Tony Branch MD Referring Provider Active Start: March 02, 2025 End: March 02, 2025 Team Status: Active Member Role/Relationship Status Dates Dr. Pravin Siddiqi MD Primary Care Provider Active Team Status: Inactive Member Role/Relationship Status Dates Dr. Pravin Siddiqi MD Primary Care Provider Active Start: February 09, 2025 End: February 09, 2025 Dr. Pravin Siddiqi MD Referring Provider Active Start: February 09, 2025 End: February 09, 2025 Dr. Tony Branch MD Attending Provider Active Start: February 09, 2025 End: February 09, 2025 Team Status: Inactive Member Role/Relationship Status Dates Dr. Pravin Siddiqi MD Primary Care Provider Active Start: March 02, 2025 End: March 02, 2025 Dr. Tony Branch MD Attending Provider Active Start: March 02, 2025 End: March 02, 2025 Dr. Tony Branch MD Referring Provider Active Start: March 02, 2025 End: March 02, 2025 Team Status: Inactive Member Role/Relationship Status Dates Dr. Pravin Siddiqi MD Primary Care Provider Active Start: May 26, 2025 End: May 26, 2025 Dr. Pravin Siddiqi MD Referring Provider Active Start: May 26, 2025 End: May 26, 2025 Dr. Tony Branch MD Attending Provider Active Start: May 26, 2025 End: May 26, 2025 FOR RECORDS PERTAINING TO PATIENTS WHO ARE OR HAVE BEEN ENROLLED IN A CHEMICAL DEPENDENCY/SUBSTANCEABUSE PROGRAM, SOME INFORMATION MAY BE OMITTED. This clinical summary was aggregated from multiple sources. Caution should be exercised in using it in the provision of clinical care. This summary normalizes information from multiple sources, and as a consequence, information in this document may materially change the coding, format and clinical context of patient data. In addition, data may be omitted in some cases. CLINICAL DECISIONS SHOULD BE BASED ON THE PRIMARY CLINICAL RECORDS. [facility] [employer] [facility]. provides no warranty or guarantee of the accuracy or completeness of information in this document.
[2025-08-12 09:17] LABS: Hematocrit 38.6 % (37-47); Hemoglobin 13.1 g/dL (12.0-15.0); Immature Granulocytes Count 0.000 X10^3/uL (0.0-0.0); Mean Corp Hgb Conc 33.9 g/dL (32-36); Mean Corpuscular Volume 100.3 fL (81-99); Mean Platelet Vol. 11.1 fl (6.2-12.0); NRBC Flagged by Analyzer 0 % (0-5); Platelet Count 176 K/mm3 (150-450); RBC Distribution Width CV 11.7 % (11.6-14.6); RBC Distribution Width SD 42.9 fl (35.1-43.9); Red Blood Count 3.85 M/mm3 (4.2-5.4); White Blood Count 3.6 K/mm3 (4.4-11.0)
[2025-08-12 10:27] LABS: AST(SGOT) 20 U/L (<=31); Alanine Aminotransfer ALT/SGPT 16 U/L (<=34); Albumin, Serum 4.4 g/dL (3.4-4.8); Alkaline Phosphatase 88 U/L (35-104); Anion Gap 9 (5-15); BUN 9 mg/dL (4-19); BUN/Creat Ratio 15.6 RATIO (10-20); Calcium,Total 9.3 mg/dL (7.6-11.0); Carbon Dioxide 26.4 mmol/L (21.0-32.0); Chloride 104 mmol/L (98-108); Globulin 2.3 g/dL (2.2-4.2); Glucose 100 mg/dL (70-99); Potassium 4.4 mmol/L (3.3-5.1)
[2025-08-12 10:38] LABS: Carbamazepine (Tegretol) 5.1 ug/mL (4.0-12.0)
== END | disposition home or self-care (01) ==
LOC: LAB 08:38
PROVIDERS: Referring Provider Psychiatry & Neurology Neurology; Visit Provider Psychiatry & Neurology Neurology
DX: G50.1 Atypical facial pain (principal); R73.9 Hyperglycemia, unspecified
CPT/HCPCS: 36415; 80053; 80156; 83036; 85025